=== PATIENT | male | born 1955 | race Two or more races ===

== ENCOUNTER 2024-10-08 19:48 | Emergency (ER) | payer OTHER ==
[~2024-10-08] VITALS: Ht 167.6 cm; Wt 69.8 kg
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
[2024-10-08 20:32] VITALS: BP 132/93; PULSE 74; RESP 18; TEMP 98.2; O2SAT 96
--- NOTE | 2024-10-08 21:19 | DVH ---
CLINICAL HISTORY: right ankle pain TECHNIQUE: 3 views of the left ankle were obtained. COMPARISON: None FINDINGS: No acute fracture or dislocation is seen. The ankle mortise is intact. There is mild generalized soft tissue swelling. IMPRESSION: NO ACUTE RADIOGRAPHIC ABNORMALITY OF THE LEFT ANKLE.
== END 2024-10-08 21:30 | disposition home or self-care (01) ==
LOC: ER 19:48
DX: G89.29 Other chronic pain (principal); V89.2XXA Person injured in unspecified motor-vehicle accident, traffic, initial encounter; Y93.89 Activity, other specified; Y92.89 Other specified places as the place of occurrence of the external cause; Y99.8 Other external cause status
CPT/HCPCS: 73610